=== PATIENT | female | born 1955 | race Asian ===

== ENCOUNTER 2018-07-14 18:52 | Emergency (ER) | payer SELFPAY ==
--- NOTE | 2018-07-14 19:08 | UC ---
UC General HPI - HPI Summary HPI Summary: 63-year-old woman is brought in to urgent care by her family stating that she has a new onset left facial droop and left arm weakness. I saw the patient in the waiting room and due to the stroke symptoms I let them know I will call an ambulance. The patient's family refused an ambulance and brought her out to her their car to drive her to the emergency department. I was unable to obtain any other history or physical examination. - History of Current Complaint Stated Complaint: DIZZY Time Seen by Provider: 07/14/18 19:00 PMH/Surg Hx/FS Hx/Imm Hx - Additional Past Medical History Additional PMH: LEVEL 5 CAVET Previously Healthy: Yes - UNKNOWN - Family History Known Family History: Positive: Other - UNKNOWN Review of Systems All Other Systems Reviewed And Are Negative: No Neurological: Positive: Weakness Is Patient Immunocompromised?: No - LEVEL 5 CAVET FOR THE REMAINDER OF ROS Physical Exam Triage Information Reviewed: No Completion Of Physical Exam Limited Due To: Other - PATIENT DOES NOT SPEAK TURKISH AND THE FAMILY LEFT WITH HER BEFORE I COULD PERFORM AND COMPLETE HISTORY AND PE Appearance: Other: - LEFT FACIAL DROP AND LEFT ARM WEAKNESS Vital Signs Reviewed: No Respiratory: Positive: No respiratory distress Neurological: Positive: Other: - LEFT FACIAL DROOP AND ARM WEAKNESS Course/Dx - Course Course Of Treatment: Workforce Consultant alerted immediately there was a patient in the waiting room with strokelike symptoms. The patient does not speak Guatemalan. Her family was interpreting for her. I went into the living room to see a woman sitting in the chair not speaking with left facial droop and left arm weakness. I do not see any respiratory distress. I told the family I am going to call an ambulance to get the patient to the emergency department. The family refused and took the patient into their POV to go to the emergency department. I called the charge nurse in the emergency Department to let them know of the patient coming. Nursing was unable to see the patient prior to her family leaving with her. - Diagnoses Provider Diagnosis: CVA (cerebral vascular accident) Discharge - Sign-Out/Discharge Documenting (check all that apply): Patient Departure All imaging exams completed and their final reports reviewed: No Studies - Discharge Plan Condition: Critical Disposition: AGAINST MEDICAL ADVICE Referrals: No Primary Care Phys,NOPCP [Primary Care Provider] - - Billing Disposition and Condition Condition: CRITICAL Disposition: Against Medical Advice
== END 2018-07-14 19:00 | disposition left against medical advice (07) ==
LOC: EDSEX 18:52 → UCEAST 18:52
DX: I63.9 Cerebral infarction, unspecified (principal)

== ENCOUNTER 2018-07-14 19:23 | Inpatient (IN) | payer SELFPAY ==
[2018-07-14] MEDS ORDERED: NS 0.9% 1000 ML** 1,000 ML IV ONE (19:33)
--- NOTE | 2018-07-14 19:40 | ED ---
Neurological HPI - HPI Summary HPI Summary: Pt is a 63 y/o F presenting to the ED for stroke symptoms. Per the pts daughter, the pts last known well is today at 1700. She reported the pt had a headache, weakness, and L-sided droop onset around 1730. She denies PMHx of diabetes or HTN. FLETCHER DUTTON CALLED: 19:31. - History of Current Complaint Chief Complaint: EDNeurologicalDeficit Stated Complaint: STROKE LIKE SYMPTOMS Time Seen by Provider: 07/14/18 19:30 Last Known Well Date: 07/14/2018, 17:00 Hx Obtained From: Patient, Family/Solar Project Manager - daughter Hx From Patient Unobtainable Due To: Other - fletcher dutton, pt unable to speak kinyarwanda Onset/Duration: Sudden Onset, Started hours ago, Still Present Timing: Constant Onset Severity: Moderate Current Severity: Moderate Neurological Deficit Location: Facial Pain Intensity: 0 Pain Scale Used: 0-10 Numeric Character: Lightheaded, Weak, Other: - L-sided facial droop Aggravating: Unknown Alleviating: Unknown Associated Signs and Symptoms: Positive: Unsteady Gait, Headache, Weakness, Lightheadness TPA Considered: Yes - began at 20:18 - Allergy/Home Medications Allergies/Adverse Reactions: Allergies Allergy/AdvReac Type Severity Reaction Status Date / Time No Known Allergies Allergy Verified 07/14/18 21:05 Home Medications: Home Medications NK [No Home Medications Reported] 07/14/18 [History Confirmed 07/14/18] PMH/Surg Hx/FS Hx/Imm Hx Previously Healthy: Yes Endocrine/Hematology History: Denies: Hx Blood Disorders, Hx Diabetes Cardiovascular History: Denies: Hx Hypertension, Hx Myocardial Infarction Neurological History: Denies: Hx CVA, Hx Seizures, Hx Transient Ischemic Attacks (TIA) Infectious Disease History: Unable to Obtain/Confirm Infectious Disease History: Denies: Traveled Outside the [place] in Last 30 Days - Family History Known Family History: Positive: Other - UNKNOWN Negative: Diabetes - Social History Hx Tobacco Use: No Smoking Status (MU): Never Smoked Tobacco Review of Systems Negative: Fever Neurological: Other - L-sided droop Positive: Headache, Weakness. Negative: Slurred Speech All Other Systems Reviewed And Are Negative: Yes Physical Exam - Summary Physical Exam Summary: Appearance: Well appearing, no pain distress Skin: warm, dry, reflects adequate perfusion Head/face: normal Eyes: EOMI, RACHEL ENT: normal Neck: supple, non-tender Respiratory: CTA, breath sounds present Cardiovascular: RRR, pulses symmetrical Abdomen: non-tender, soft Musculoskeletal: pulse b/l Neuro: A&Ox3 GCS: 15 NIH: 5 Triage Information Reviewed: Yes Vital Signs On Initial Exam: Initial Vitals Temp Pulse Resp BP Pulse Ox 0 F 0 0 0/0 0 07/14/18 19:30 07/14/18 19:30 07/14/18 19:30 07/14/18 19:30 07/14/18 19:30 Vital Signs Reviewed: Yes Diagnostics - Vital Signs Vital Signs Temp Pulse Resp BP Pulse Ox 07/14/18 19:30 0 F 0 0 0/0 0 - Laboratory Result Diagrams: 07/14/18 19:45 07/14/18 19:44 Lab Statement: Any lab studies that have been ordered have been reviewed, and results considered in the medical decision making process. - Radiology Chest x-ray Radiology Interpretation Completed By: ED Physician Summary of Radiographic Findings: No acute process. Pending official radiology report. - CT Brain CT CT Interpretation Completed By: Radiologist Summary of CT Findings: No acute intracranial abnormality. ED physician has reviewed this report. - EKG 2007 Cardiac Rate: NL - 65bpm EKG Rhythm: Sinus Rhythm ST Segment: Normal Ectopy: None Summary of EKG Findings: T-wave changes NIH Scale - NIH Scale Level of Consciousness: Alert/Keenly Responsive Ask Patient the Month and His/Her Age: Both Correct Ask Pt to Open/Close Eyes and Ivory Polisher/Release Non-Paretic Hand: Both Correctly Best Gaze (Only Horizontal Eye Movement): Normal Visual Field Testing: No Visual Loss Facial Paresis-Pt to Smile & Close Eyes or Grimace Symmetry: Partial Paralysis Motor Function - Right Arm: No Drift-Holds 10 Seconds Motor Function - Left Arm: Drifts LT 10 seconds Motor Function - Right Leg: No Drift-Holds 10 Seconds Motor Function - Left Leg: Drifts LT 10 seconds Limb Ataxia-Must be out of Proportion to Weakness Present: Present in One Limb Sensory (Use Pinprick to Test Arms/Legs/Trunk/Face): Normal Best Language (Describe Picture, Name Items): No Aphasia Dysarthria (Read Several Words): Normal Extinction and Inattention: No Abnormality Total Score: 5 Course/Dx - Course Course Of Treatment: Pt is a 63 y/o F presenting to the ED for stroke symptoms. Per the pts daughter, the pts last known well is today at 1700. She reported the pt had a headache, weakness, and L-sided droop onset around 1730. FLETCHER DUTTON CALLED: 19:31. [facility] called for telestroke consult at 1932, consult occurred at 1954. The physician recommended tpa, which was given at 2017. Per nursing notes, the pt has gone from a 5 to a 1 on the NIH stroke scale. - Differential Dx Differential Diagnoses Neuro: Positive: Cerebrovascular Accident, Headache, Intracranial Bleed, Transient Ischemic Attack - Diagnoses Provider Diagnoses: CVA (cerebral vascular accident) During the Visit The Following Alert/Code Occurred: Fletcher Dutton - called at 19:31 - Critical Care Time Critical Care Time: 30-74 min - 60 minutes Discharge - Sign-Out/Discharge Documenting (check all that apply): Patient Departure - Discharge Plan Condition: Stable Disposition: ADMITTED TO [facility] Referrals: No Primary Care Phys,NOPCP [Primary Care Provider] - [facility] [place] - Billing Disposition and Condition Condition: STABLE Disposition: Admitted to [facility] - Attestation Statements Document Initiated by Scribe: Yes Documenting Scribe: Joanna Hernandez Provider For Whom Scribe is Documenting (Include Credential): Damian Benson MD. Scribe Attestation: Joanna Penaloza, scribed for Damian Benson MD. on 07/14/18 at 2212. Scribe Documentation Reviewed: Yes Provider Attestation: The documentation as recorded by the scribeJoanna accurately reflects the service I personally performed and the decisions made by , Damian Benson MD. Status of Scribe Document: Viewed Consult Consult: 1932 - Called [facility] for Telestroke consult, spoke on the phone with them at 1955. [facility] physician recommended giving tpa dose. 2029 - Spoke with Dr. Myao about the pt's present condition who will be the accepting physician [place] [facility] [place] dx of [place].
[2018-07-14 19:54] LABS: ABS Basophils 0 10^3/ul (0-0.2); ABS Eosinophils 0.1 10^3/ul (0-0.6); ABS Lymphocytes 1.3 10^3/ul (1.0-4.8); ABS Monocytes 0.4 10^3/ul (0-0.8); ABS Neutrophils 3.7 10^3/ul (1.5-7.7); ABS Nucleated RBC 0 10^3/ul; Eosinophil % 2.1 %; Hematocrit 41 % (35-47); Hemoglobin 14.1 g/dl (12.0-16.0); Lymphocyte % 23.2 %; Mean Corpuscular HGB Conc 34 g/dl (31-36); Mean Corpuscular Hemoglobin 32 pg (27-31); Mean Corpuscular Volume 94 fL (80-97); Mean Platelet Volume 8.1 fL (7.4-10.4); Nucleated Red Blood Cells % 0; Platelet Count 270 10^3/ul (150-450); Red Blood Count 4.39 10^6/ul (4.00-5.40); Red Cell Distribution Width 13 % (10.5-15); White Blood Count 5.5 10^3/ul (3.5-10.8)
[2018-07-14 20:03] LABS: Activated Partial Thrombo Time 31.7 seconds (26.0-36.3); INR 0.94 (0.77-1.02)
[2018-07-14] MEDS ORDERED: Alteplase* 100 MG VIAL ONE (20:06)
[2018-07-14] MEDS ORDERED: Alteplase* 100 MG VIAL IV ONE ×4 (20:12→20:15)
[2018-07-14 20:16] LABS: Albumin 4.6 g/dL (3.2-5.2); Albumin/Globulin Ratio 1.4 (1-3); BUN/Creatinine Ratio 23.1 (8-20); Calcium 9.8 mg/dL (8.6-10.3); EGFR African American 111.4 (>60); EGFR Non-African American 92.1 (>60); Globulin 3.3 g/dL (2-4); HDL Cholesterol 57.3 mg/dL; Potassium 4.2 mmol/L (3.5-5.0); Total Bilirubin 0.5 mg/dL (0.2-1.0); Total Protein 7.9 g/dL (6.4-8.9)
[2018-07-14] MEDS ORDERED: cloNIDine TAB* 0.1 MG ONE (21:17)
[2018-07-14] MEDS: cloNIDine TAB* 0.1 MG PO ONE ×3 (21:19→21:53)
[2018-07-14] MEDS ORDERED: Iohexol 350* (CONTRAST) 500 ML MDV IV ONE (22:36)
[2018-07-14] MEDS ORDERED: amLODIPine TAB* 5 MG PO ONE (23:29)
[2018-07-14] MEDS ORDERED: amLODIPine TAB* 5 MG ONE (23:32)
--- NOTE | 2018-07-15 04:43 | HP ---
HISTORY AND PHYSICAL: DATE OF ADMISSION: 07/14/18 TIME OF ADMISSION: 11:30 p.m. PRIMARY CARE PHYSICIAN: She does not have one; she is visiting from [place]. CHIEF COMPLAINT: Facial droop. HISTORY OF PRESENT ILLNESS: This is a 63-year-old woman with no past medical history who is here visiting her daughter from [place] and was brought to the emergency department for acute CVA symptoms. Her daughter, Crow Penn, interprets for my interview. [place] Flap Inserter was offered, but Ms. Cleveland preferred her daughter. Ms. Cleveland's symptoms first began with a headache between 4 and 5 p.m. Her daughter was not home at that time. She was also having some dizziness, so she laid down, then her grandson noted that she could not speak and had left- sided weakness at approximately 5:30. At 6 p.m., her daughter arrived home from work and they went to urgent care and from urgent care, she was sent to the emergency department. In the emergency department, a code zhu was called and her NIH score was 5. [place] telestroke was utilized and they recommended TPA. TPA was administered at 2018 hours and since that time in discussion with her nurse, she reports that her symptoms have almost resolved. Ms. Cleveland and her daughter agree that she has improved nearly to her baseline. Ms. Cleveland has no complaints at this time. She has no headache, change in vision, lightheadedness , chest pain, shortness of breath, numbness, tingling, weakness, or confusion. PAST MEDICAL HISTORY: None. SOCIAL HISTORY: She is currently visiting [place] and lives in [place]. She has never been a smoker. Her healthcare proxy is her daughter, Crow. REVIEW OF SYSTEMS: As per the HPI. Remainder of the 14-point review of systems is negative. PHYSICAL EXAMINATION GENERAL: Ms. Cleveland is sleepy but alerts to voice. VITAL SIGNS: Temperature 98.4, heart rate 68, respiratory rate 15, pulse ox 100 % on room air, blood pressure 113/87. HEENT: Her pupils are 2 mm bilaterally and react to light. She has no nystagmus. Her oral mucosa is moist. NECK: I hear no carotid bruits. She has no JVP or cervical adenopathy. LUNGS: Clear bilaterally. CHEST: She is in a regular rate and rhythm with no murmurs. ABDOMEN: Soft, nontender, and nondistended. No guarding or rebound. No CVA tenderness. EXTREMITIES: No rashes, edema, or ulcers. NEUROLOGIC: She has no nystagmus. Her face is almost symmetric with a very, very slight left facial droop. Her nasolabial fold is preserved bilaterally. She is able to raise her eyebrows equally. Cranial nerves II through XII are intact. Her strength is 5/5 in both upper extremities and both lower extremities. She has no pronator drift. Her object naming is correct. Her coordination is intact. Her proprioception is intact. LABORATORY DATA: White blood cells 5.5, hemoglobin 14.1, platelets 270. INR 0.94. Sodium 140, potassium 4.2, chloride 105, bicarb 27, BUN 15, creatinine 0.65, glucose 111, lactate acid 1.0. Troponin 0.00, 0.00. Cholesterol 177, triglycerides 66, LDL 107. Brain CT: No acute intracranial abnormality. Head CTA shows moderate stenosis of bilateral internal carotid arteries and cavernous portion with calcified plaque, foci of air in bilateral cavernous sinuses. Clinical correlation with recent vascular intervention and no acute abnormality. CT of the neck shows no acute findings. ASSESSMENT AND PLAN: This is a 63-year-old female with no past medical history , who presents to the emergency department with a facial droop and left-sided weakness, was found to have NIH stroke scale of 5 and received TPA at 2018 hours. 1. Acute cerebrovascular accident versus transient ischemic attack. Her symptoms are almost completely resolved after TPA. She is being admitted to the ICU post TPA. Precautions and order sets have been completed. She is ordered for q.15 neuro checks, bed rest, and bleeding precautions. I have educated her that should she experience any new symptoms at all, she is to alert us immediately. I will consult Neurology in the morning and order an MRI for the morning. I have also ordered a TTE for the morning. I am ordering a statin. She will likely need an antiplatelet or two after tpa wears off but I will defer to Neurology and await the MRI in the morning. An A1c is pending for secondary risk management. 2. Hypertension. This would be a new problem for her if it is true; however, I suspect it was the stress of the situation. We will aim for normotension but allow permissive hypertension should it trends that way given her possible acute cerebrovascular accident. No antihypertensives for now. 3. DVT prophylaxis, contraindicated in the setting of recent TPA. 4. Diet. NPO pending a swallow evaluation. 5. Disposition. Admit to the ICU with the Neurology consult. [id number]/[facility] #: [id number] [place]
[2018-07-15] MEDS ORDERED: NS 0.9% 1000 ML** 2,000 ML IV ONE (04:44)
--- NOTE | 2018-07-15 04:48 | PN ---
Hospitalist Progress Note Date of Service: 07/15/18 I was called to the ICU for a return of Ms. Cleveland's stroke symptoms. Upon my arrival, her MAP was 52 and she had a left sided facial droop, left upper and lower extremity weakness and sleepiness but aroused to voice. 2 bags of NS were immediately hung wide open and we transported her to CT scan. When we got back in the elevator to come back upstairs, her MAP was 70s and her symptoms were improving. Images were pushed to [facility] [place] and I spoke with the neurologist. Vrad called and reported a new hypodense lesion in the right MCA territory. [facility] [place] neurologist recommended no change in management at this time.
[2018-07-15] MEDS ORDERED: NS 0.9% 1000 ML** 1,000 ML IV SCH ×2 (05:30→10:34)
[2018-07-15 05:35] LABS: ABS Basophils 0 10^3/ul (0-0.2); ABS Eosinophils 0.1 10^3/ul (0-0.6); ABS Lymphocytes 1.2 10^3/ul (1.0-4.8); ABS Monocytes 0.4 10^3/ul (0-0.8); ABS Neutrophils 2.2 10^3/ul (1.5-7.7); ABS Nucleated RBC 0 10^3/ul; Eosinophil % 1.9 %; Hematocrit 39 % (35-47); Lymphocyte % 30.9 %; Mean Corpuscular HGB Conc 34 g/dl (31-36); Mean Corpuscular Hemoglobin 32 pg (27-31); Mean Corpuscular Volume 94 fL (80-97); Nucleated Red Blood Cells % 0.1; Platelet Count 223 10^3/ul (150-450); Red Cell Distribution Width 13 % (10.5-15); White Blood Count 3.9 10^3/ul (3.5-10.8)
[2018-07-15 05:45] LABS: INR 1.06 (0.77-1.02)
[2018-07-15 06:06] LABS: Albumin 3.6 g/dL (3.2-5.2); Albumin/Globulin Ratio 1.4 (1-3); BUN/Creatinine Ratio 19.6 (8-20); Calcium 7.9 mg/dL (8.6-10.3); EGFR African American 147.4 (>60); EGFR Non-African American 121.8 (>60); Globulin 2.5 g/dL (2-4); Potassium 3.4 mmol/L (3.5-5.0); Total Bilirubin 0.7 mg/dL (0.2-1.0); Total Protein 6.1 g/dL (6.4-8.9)
[2018-07-15] MEDS ORDERED: Potassium Chlor TAB* 20 MEQ TAB.ER PO ONE (07:53)
[2018-07-15] MEDS: NS 0.9% 1000 ML** 1,000 ML IV ONE ×2 (07:58→09:01)
[2018-07-15] MEDS: Pantoprazole TAB * 40 MG TAB PO SCH (08:21)
--- NOTE | 2018-07-15 10:51 | ECHO ---
Patient: BERENICE REILLY [facility] Rec#: [id number] : 1955 Date: 07/15/2018 Age: 63y Height: 152 cm / 59.8 in Weight: 52 kg / 114.6 lbs Sex: F BSA: 1.47 Room#: [facility] Admit Date#: 07/15/2018 Type: Inpatient Referring: Mary Mayo MD Reading: Ayden Ocampo MD Django Developer: Katie Cruz RDCS CC: Reynaldo Tom MD Transthoracic Echocardiogram Indication: CVA BP: 103/66 HR: 48 Rhythm: Bradycardia Findings History: No known cardiac history, s/p tPA. Technical Comments: The study quality is good. Completed at 0815. Left Ventricle: The left ventricular chamber size is normal. Mild concentric left ventricular hypertrophy is observed. Global left ventricular wall motion and contractility are within normal limits. There is normal left ventricular systolic function. The estimated ejection fraction is 55-60%. There is no consistent Doppler evidence of clinically significant diastolic dysfunction. Left Atrium: The left atrium is mildly dilated. Right Ventricle: Moderator Band present. The right ventricle is slightly dilated. The right ventricular global systolic function is normal. Right Atrium: The right atrium is mildly dilated. Interatrial septum appears intact without evidence of shunting. The bubble study is negative. A patent foramen ovale is not demonstrated with color Doppler and agitated contrast. Aortic Valve: The aortic valve is trileaflet. The aortic valve leaflets are mildly thickened. There is a trace of aortic regurgitation. There is no evidence of aortic stenosis. Mitral Valve: The mitral valve leaflets are mildly thickened. There is a trace of mitral regurgitation. There is no evidence of mitral stenosis. Tricuspid Valve: The tricuspid valve leaflets are normal. There is trace to mild tricuspid regurgitation. The right ventricular systolic pressure is estimated at 21 mmHg. No pulmonary hypertension is noted. There is no tricuspid stenosis. Pulmonic Valve: The pulmonic valve appears normal. There is a trace pulmonic regurgitation. There is no pulmonic stenosis. Pericardium: There is no significant pericardial effusion. Aorta: There is no dilatation of the ascending aorta. There is no dilatation of the aortic arch. The aortic root is normal in size. Pulmonary Artery: The main pulmonary artery appears normal. Venous: The inferior vena cava appears normal in size. There is a greater than 50% respiratory change in the inferior vena cava dimension. Contrast: Intravenous agitated saline contrast was used to assess intracardiac shunting. Images 92 and 93. Summary: There was not any prior study for comparison. Conclusions The left ventricular chamber size is normal. Mild concentric left ventricular hypertrophy is observed. The estimated ejection fraction is 55-60%. The left atrium is mildly dilated. Interatrial septum appears intact without evidence of shunting. The bubble study is negative. A patent foramen ovale is not demonstrated with color Doppler and agitated contrast. There is a trace of aortic regurgitation. There is a trace of mitral regurgitation. There is trace to mild tricuspid regurgitation. No pulmonary hypertension is noted. There is a trace pulmonic regurgitation. Measurements Name Value Normal Range RVIDd (AP) 2D 2.7 cm (0.9 - 2.6) RVDdMajor (2D) 3.6 cm (2.2 - 4.4) RAd ISD 4CH 5.4 cm (3.4 - 4.9) RA (A4C)W 3.7 cm (2.9 - 4.6) IVSd (2D) 1.1 cm (0.6 - 1) LVPWd (2D) 1.1 cm (0.6 - 1) LVIDd (2D) 4 cm (3.6 - 5.4) LVIDs (2D) 2.5 cm - LV FS (2D) 38 % (25 - 45) Aortic Annulus 1.7 cm (1.4 - 2.6) Ao root diameter (2D) 2.7 cm (2.1 - 3.5) Ascending Ao 3.4 cm (2.1 - 3.4) Aortic arch 2.4 cm (1.8 - 3.4) LA dimension (AP) 2D 3.5 cm (2.3 - 3.8) LAd ISD 4CH 5.3 cm (2.9 - 5.3) LA ISD 4CH W 4.2 cm (2.5 - 4.5) Name Value Normal Range LA ESV BP (A/L) index 36 ml/m2 - Name Value Normal Range MV E-wave Vmax 0.6 m/sec - MV deceleration time 268 msec - MV A-wave Vmax 0.5 m/sec - MV E:A ratio 1.2 ratio - LV septal e' Vmax 0.05 m/sec - LV lateral e' Vmax 0.1 m/sec - LV E:e' septal ratio 12 ratio - LV E:e' lateral ratio 6 ratio - Name Value Normal Range AV Vmax 1.2 m/sec - AV VTI 28 cm - AV peak gradient 5 mmHg - AV mean gradient 3 mmHg - LVOT Vmax 1 m/sec - LVOT VTI 25 cm - LVOT peak gradient 4 mmHg - LVOT mean gradient 2 mmHg - BRAULIO Vmax 0.5 m/sec - Name Value Normal Range TR Vmax 2.1 m/sec - TR peak gradient 18 mmHg - RAP 3 mmHg - RVSP 21 mmHg - IVC diameter 1.3 cm - Name Value Normal Range PV Vmax 0.7 m/sec - PV peak gradient 2 mmHg - TN end-diastolic Vmax 0.6 m/sec - PA end-diastolic pressur1 mmHg -
[2018-07-15 10:55] LABS: C Reactive Protein 1.57 mg/L (<8.01)
--- NOTE | 2018-07-15 12:16 | PN ---
NEUROLOGICAL FOLLOWUP: DATE: 07/15/18 HISTORY OF PRESENT ILLNESS: This is a neurological followup on Nieves Cleveland after a telestroke consult done last evening. She is a 63-year-old woman who presented last night with left facial droop and left arm weakness and came with symptoms of acute stroke. This happened at about 5:30 and she was transferred from the urgent care to the emergency room, where a code zhu was called and she had a NIH stroke scale of 5. Telestroke recommended tPA, which was done at 2018 hours and following that, her symptoms almost resolved. However, overnight, she had return of her left- sided weakness, so she was with low blood pressure at about 4 a.m. A repeat CAT scan was done at that point. She also at about 8 o'clock, also in association with low blood pressure, developed left-sided weakness. Both times she had return of good strength on the left side after a fluid bolus was given both times. She is on no medicines, has no past medical history. She lives in [place] and is visiting her daughter in [place]. She is not a smoker. She has had no known surgery. Review of systems through her daughter is negative. PHYSICAL EXAMINATION: She is awake and alert and conversant in Yoruba and answers questions through her daughter appropriately. Pulse 74, respirations 20 , blood pressure 150/101, temperature 98.1. She is alert and oriented. Cranial nerves II through XII were intact, other than there may have been a minor left facial weakness with her left palpebral fissure slightly wider when compared to the right, but otherwise no clear facial weakness. Motor exam is with normal tone and strength. She had trace pronator drift on the left. Reflexes were 2 and equal. Chest: Clear. Cardiovascular: Regular rate and rhythm. Abdomen: Soft with positive bowel sounds. She had intact sensation to touch on both sides. DIAGNOSTIC STUDIES/LAB DATA: CT scan was initially negative, but then showed at 4:20 this morning a hypodensity in the right caudate and right internal capsule and lentiform nucleus. A 6 mm right ICA aneurysm was noted by the radiologist. CTA showed moderate stenosis in bilateral internal carotids in the cavernous portion. There was no acute abnormality. ASSESSMENT AND PLAN: Mrs. Cleveland had a partial right middle cerebral artery stroke with symptoms resolved following tPA and fluid status. She is getting an echo. She has been placed on a statin for LDL of 107. Her CBC, INR, and PTT were normal and her CMP was unremarkable, other than the LDL was the only abnormality on her workup. She will be getting an MRI scan this evening and then we will be placing her on most likely antiplatelet therapy since there is no history of atrial fibrillation. I will discuss with the radiologist the issue of possible aneurysm on the CT scan that was read, but not on her CTA. Thank you for sharing her case. [id number]/[facility] #: [id number] [place]
[2018-07-15] MEDS ORDERED: NS 0.9% 1000 ML** 1,000 ML IV ONE (14:58)
[2018-07-15] MEDS: Phenylephrine 10 MG/ML VIAL* 50 MG in NS 0.9% 250 ML* 245 ML IV SCH (16:20)
[2018-07-15] MEDS ORDERED: Atorvastatin* 40 MG TAB PO SCH (17:00)
[2018-07-15] MEDS: Atorvastatin* 80 MG TAB PO SCH (18:04)
[2018-07-15] MEDS ORDERED: Aspirin 81 mg CHEW TAB* 81 MG TAB.CHEW PO SCH ×2 (20:00→21:30)
--- NOTE | 2018-07-15 20:07 | PN ---
Subjective Date of Service: 07/15/18 Interval History: Pt seen and examined. Meds and labs reviewed. CC: Waxing and waning of symptoms ROS: Denied KOEHLER/dizziness, F/C, N/V, CP, SOB, increased cough, sputum production , abd pain, diarrhea, constipation, dysuria, myalgias, arthralgias, throat pain , and new skin lesions. The rest of the 14 point ROS are unremarkable. PHYSICAL EXAM: GEN APPEARANCE: Awake, not in acute distress HEENT: NC/AT, PERRLA, moist oral mucosa, (-) throat erythema NECK: Soft, supple, (-) cervical LAD, (-)JVD HEART: S1S2 WNL, RRR, No MRG CHEST: CTA, BL, GAE, No W/R/R ABD: Soft, ND/NT, NABS 4x Q EXT: No C/C/E SKIN: Warm to touch PSYCH: No active psychosis, hallucinations, depression, SI/HI Objective Active Medications: Atorvastatin Calcium (Lipitor*) 80 mg PO 1700 [facility] Last Admin: 07/15/18 18:04 Dose: 80 mg Sodium Chloride (Ns 0.9% 1000 Ml) 1,000 mls @ 125 mls/hr IV PER RATE KWESI Phenylephrine HCl 50 mg/ (Sodium Chloride) 250 mls @ 3 mls/hr IV Q24H [facility]; Protocol Last Admin: 07/15/18 16:20 Dose: 3 mls/hr Pantoprazole Sodium (Protonix Tab*) 40 mg PO Q24H [facility] Last Admin: 07/15/18 08:21 Dose: 40 mg Vital Signs - 8 hr 07/15/18 07/15/18 07/15/18 12:10 12:15 12:30 Temperature 99.4 F Pulse Rate 67 74 Respiratory 18 17 Rate Blood Pressure 123/74 123/81 (mmHg) O2 Sat by Pulse 97 97 Oximetry 07/15/18 07/15/18 07/15/18 12:45 13:00 13:15 Temperature Pulse Rate 63 62 77 Respiratory 20 18 15 Rate Blood Pressure 109/68 108/66 130/85 (mmHg) O2 Sat by Pulse 96 97 99 Oximetry 07/15/18 07/15/18 07/15/18 13:30 13:45 14:00 Temperature Pulse Rate 64 60 59 Respiratory 17 18 18 Rate Blood Pressure 111/67 107/66 111/67 (mmHg) O2 Sat by Pulse 96 96 96 Oximetry 07/15/18 07/15/18 07/15/18 14:02 14:15 14:30 Temperature Pulse Rate 59 58 65 Respiratory 17 18 16 Rate Blood Pressure 102/65 111/71 (mmHg) O2 Sat by Pulse 95 95 96 Oximetry 07/15/18 07/15/18 07/15/18 14:45 15:00 15:01 Temperature Pulse Rate 58 60 57 Respiratory 19 22 19 Rate Blood Pressure 112/69 111/68 (mmHg) O2 Sat by Pulse 95 95 95 Oximetry 07/15/18 07/15/18 07/15/18 15:15 15:30 15:45 Temperature Pulse Rate 57 80 69 Respiratory 19 18 18 Rate Blood Pressure 115/69 138/86 124/75 (mmHg) O2 Sat by Pulse 96 97 96 Oximetry 07/15/18 07/15/18 07/15/18 16:00 16:01 16:15 Temperature 100.0 F Pulse Rate 79 85 71 Respiratory 20 15 21 Rate Blood Pressure 139/85 131/80 (mmHg) O2 Sat by Pulse 98 99 96 Oximetry 07/15/18 07/15/18 07/15/18 16:30 16:45 17:00 Temperature Pulse Rate 64 70 73 Respiratory 19 14 21 Rate Blood Pressure 126/77 128/81 149/92 (mmHg) O2 Sat by Pulse 96 96 97 Oximetry 07/15/18 07/15/18 07/15/18 17:01 17:57 18:00 Temperature Pulse Rate 71 74 89 Respiratory 15 19 13 Rate Blood Pressure 128/97 159/105 (mmHg) O2 Sat by Pulse 97 97 100 Oximetry 07/15/18 07/15/18 07/15/18 18:01 18:15 18:21 Temperature Pulse Rate 79 78 75 Respiratory 20 22 21 Rate Blood Pressure 172/97 152/96 (mmHg) O2 Sat by Pulse 98 99 98 Oximetry 07/15/18 07/15/18 18:32 18:45 Temperature Pulse Rate 80 72 Respiratory 21 19 Rate Blood Pressure 158/98 153/91 (mmHg) O2 Sat by Pulse 98 98 Oximetry Oxygen Devices in Use Now: None Result Diagrams: 07/15/18 05:20 07/15/18 05:20 Microbiology and Other Data: Microbiology 07/15/18 01:05 Nasal Screen MRSA (PCR) - Final Nasal Mrsa Not Detected Assess/Plan/Problems-Billing Assessment: - Patient Problems (1) CVA (cerebral vascular accident) Current Visit: Yes Status: Acute Code(s): I63.9 - CEREBRAL INFARCTION, UNSPECIFIED SNOMED Code(s): 060752427 Comment: -R. MCA infarct -Maintain BP between 110/60-140/90 -D/W Tomasa Rosenberg, and [place] -Dueto my discussion w/Dr. Mays and Tomasa, reassessed pt and found pt more awake and interactive w/no complaints; D/Cd neosynephrine gtt and D/C ASA to be started tonight -Will continue watchful waiting -Continue statins (2) DVT prophylaxis Current Visit: Yes Status: Acute Code(s): XVY4325 - SNOMED Code(s): 431156761 Comment: -Contraindicated given above -Place pt on SCDs Status and Disposition: -For PT/OT eval -Passed speech eval; placed on heart healthy diet
[2018-07-15 20:38] LABS: Urine Appearance Clear; Urine Bacteria Absent (Absent); Urine Bilirubin Negative (Negative); Urine Blood 1+ (Negative); Urine Color Colorless; Urine Glucose Negative (Negative); Urine Ketones Trace (Negative); Urine Nitrite Negative (Negative); Urine Protein Negative (Negative); Urine Red Blood Cell Trace(0-2/hpf) (Absent); Urine Specific Gravity 1.003 (1.010-1.030); Urine Urobilinogen Negative (Negative); Urine White Blood Cell Absent (Absent)
[2018-07-16 05:35] LABS: Hematocrit 40 % (35-47); Hemoglobin 13.5 g/dl (12.0-16.0); Mean Corpuscular HGB Conc 34 g/dl (31-36); Mean Corpuscular Hemoglobin 32 pg (27-31); Mean Corpuscular Volume 93 fL (80-97); Mean Platelet Volume 7.6 fL (7.4-10.4); Platelet Count 246 10^3/ul (150-450); Red Blood Count 4.24 10^6/ul (4.00-5.40); Red Cell Distribution Width 13 % (10.5-15); White Blood Count 5.4 10^3/ul (3.5-10.8)
[2018-07-16 05:51] LABS: Albumin 3.9 g/dL (3.2-5.2); Albumin/Globulin Ratio 1.4 (1-3); BUN/Creatinine Ratio 12.2 (8-20); Calcium 8.7 mg/dL (8.6-10.3); EGFR African American 154.3 (>60); EGFR Non-African American 127.6 (>60); Globulin 2.8 g/dL (2-4); Phosphorus 2.8 mg/dL (2.5-5.0); Potassium 3.2 mmol/L (3.5-5.0); Total Bilirubin 1.1 mg/dL (0.2-1.0); Total Protein 6.7 g/dL (6.4-8.9)
[2018-07-16] MEDS ORDERED: Potassium Chlor TAB* 20 MEQ TAB.ER PO STA (08:14)
[2018-07-16] MEDS: Pantoprazole TAB * 40 MG TAB PO SCH (08:15)
[2018-07-16] MEDS ORDERED: Iohexol 300* (CONTRAST) 10 ML SDV IV ONE (12:14)
--- NOTE | 2018-07-16 13:39 | CONS ---
NEUROLOGY FOLLOWUP CONSULTATION: DATE OF FOLLOWUP: 07/16/18 LOCATION: She is in ICU bed 11. HOSPITALIST: Dr. Singh. CHIEF COMPLAINT: Episode of difficulty speaking and left-sided weakness. INTERVAL HISTORY: Since yesterday, Ms Cleveland feels fine. She has had some fluctuations in her blood pressure and when it is low, she gets sort of sleepy, according to her daughter. She denies a headache today. She denies any weakness or numbness or problems with vision. In going over the history with her daughter, her mother is visiting from [place]. She does not get any medical care in [place] and has not seen a physician in years. Therefore, it is unknown if she has hypertension or any other medical issues. However, the patient denies any weight loss or intestinal problems. She had not been having problems with headaches prior to the day of admission. She has not had any difficulty walking or incoordination. The patient is right-handed. The daughter notes that in the last couple of days she seemed somewhat childish in her demeanor. She does not seem to have the same attention and focus she expects of her. MEDICATIONS: Reviewed and she is currently on: 1. Atorvastatin 80 mg a day. 2. Protonix. PHYSICAL EXAM: On exam, she is awake and alert, but at times gets a little bit sleepy looking. Most recent blood pressure 128/81, heart rate running in the 60s and 70s and sinus on the monitor. Last temperature was 98.3 by temporal scan. Heart tones are normal. There are no murmurs. Neck is supple. There are no cervical bruits. Oral mucosa is moist and atraumatic. Neurologic Exam: Pupils are equal at about 3 mm, reacting consensually to 2 mm. Eye movements are full. Visual tong are full to confrontation. Funduscopic exam reveals sharp disc bilaterally. Facial musculature reveals minimal flattening of the left nasolabial fold. Eye closure strength is normal bilaterally. Facial sensation to light touch with cotton is reported as symmetric. Sensation in the extremities to cotton is reported as symmetric as well. She has mild hammertoe deformities and high arches. Motor exam reveals increased muscle tone in the legs, although it is hard to tell if she just does not understand enough to relax or there is actually pathological increased tone. She has normal tone in the arms. She has normal strength in the arms. She has normal strength in the legs proximally and distally. There is no drift. Finger taps are normal in the hands. She speaks only Hungarian, but her daughter says she seems to be comprehending fine. DIAGNOSTIC STUDIES/LAB DATA: Laboratory data is reviewed and she has a normal CBC this morning, INR was borderline elevated when she came in at 1.06, PTT was normal. Chemistries have been notable for a low potassium, which has been supplemented. Hemoglobin A1c was 5.9% when she came in. Other than total bilirubin of borderline at 1.1, the rest of her chemistry profile is normal. Cholesterol on admission was 177, LDL 107. TSH normal today at 4.6. Urinalysis is unremarkable. Other laboratory data is notable for imaging, which is interesting and somewhat conflicting. She had a CT angiogram of the brain on the day of admission interpreted as normal. In retrospect, there is a right internal carotid artery aneurysm. Her initial brain CT is reported as normal but there is some loss of zhu/white matter demarcation for the right caudate and basal ganglia. The MRI of the brain yesterday was notable for the aneurysm being picked up and described. There is description of hemorrhagic transformation as well as restricted diffusion in the right basal ganglia and caudate. It is a very odd looking picture where the center of the basal ganglia lesion looks to have less restricted diffusion than the rim. There is mass effect upon the frontal horn of the right lateral ventricle. There are areas of spin-weighted abnormality suggestive of petechial hemorrhage. Her CT scan of the brain today, however, does not reveal hemorrhage. It does reveal increased mass effect, but otherwise is unremarkable. IMPRESSION AND PLAN: I am concerned that Ms. Cleveland has something other than a cerebral infarction, specifically possibly a mass. Looking at her initial brain CT scan, there is loss of zhu-white matter differentiation in the basal ganglia on the right, so there were changes really before her initial treatment. She does have internal carotid aneurysm, which appears to be asymptomatic. I would like to get a CT scan with contrast today. Ideally, she should get an MRI with contrast as well, but given that it is the weekend, I think that can wait until Wednesday at least. I will send blood work for sed rate and a CRP as well. She probably could go to the regular medical floor at this point. I have discussed with her daughter the incongruity between the imaging studies and my concern that there is something else going on besides a cerebrovascular event, specifically a possible mass. I will continue to follow her. [id number]/[facility] #: [id number] STEPHON
[2018-07-16 14:39] LABS: C Reactive Protein 2.67 mg/L (<8.01)
[2018-07-16 15:00] LABS: Carcinoembryonic Antigen 0.5 ng/mL (0.1-5.0)
--- NOTE | 2018-07-16 17:15 | PN ---
Progress Note - Progress Note Date of Service: 07/16/18 SOAP: Subjective: []Called about patient on 07/[address] Singh and Dr. Randolph after an MRI was intrepreted as showing probable hemmorhagic transformation of a right brain stroke. She was admitted and had TPA per Tele Neurology Consult.She experienced no change in her status but concern for possible hemmorhage was raised following her MRI. She had a subsequent F/U CT this AM which may show slight petechial hemmorhage in her infarct but no significant hematoma. She denies any headache and has had no nausea or vomiting.She is able to follow requests without difficulty. Objective: []Pleasant [place] lady seen with help of her family members Mild left sided weakness Assessment: [] She has a Right Brain Stroke as her initial CT was normal and subsequent CT shows infarct. She also has a small incidentally found aneurysm Plan: [] She should have her asymptomatic aneurysm evaluated after she recovers from her stroke. There is no indication for surgical therapy at this time.
[2018-07-16] MEDS: Phenylephrine 10 MG/ML VIAL* 50 MG in NS 0.9% 250 ML* 245 ML IV SCH (17:42)
[2018-07-16] MEDS: Atorvastatin* 80 MG TAB PO SCH (17:45)
--- NOTE | 2018-07-16 18:45 | PN ---
Subjective Date of Service: 07/16/18 Interval History: Pt seen and examined. Meds and labs reviewed. D/W Dr. Randolph this AM. Please see discussion below. CC: N/A ROS: Denied KOEHLER/dizziness, F/C, N/V, CP, SOB, increased cough, sputum production , abd pain, diarrhea, constipation, dysuria, myalgias, arthralgias, throat pain , and new skin lesions. The rest of the 14 point ROS are unremarkable. PHYSICAL EXAM: GEN APPEARANCE: Awake, not in acute distress HEENT: NC/AT, PERRLA, moist oral mucosa, (-) throat erythema NECK: Soft, supple, (-) cervical LAD, (-)JVD HEART: S1S2 WNL, RRR, No MRG CHEST: CTA, BL, GAE, No W/R/R ABD: Soft, ND/NT, NABS 4x Q EXT: No C/C/E SKIN: Warm to touch PSYCH: No active psychosis, hallucinations, depression, SI/HI Objective Active Medications: Atorvastatin Calcium (Lipitor*) 80 mg PO 1700 [facility] Last Admin: 07/16/18 17:45 Dose: 80 mg Phenylephrine HCl 50 mg/ (Sodium Chloride) 250 mls @ 3 mls/hr IV Q24H [facility]; Protocol Last Admin: 07/16/18 17:42 Dose: 3 mls/hr Pantoprazole Sodium (Protonix Tab*) 40 mg PO Q24H [facility] Last Admin: 07/16/18 08:15 Dose: 40 mg Vital Signs - 8 hr 07/16/18 07/16/18 07/16/18 10:45 11:00 11:15 Temperature Pulse Rate 69 66 72 Respiratory 22 21 21 Rate Blood Pressure 118/75 115/74 119/75 (mmHg) O2 Sat by Pulse 96 96 96 Oximetry 07/16/18 07/16/18 07/16/18 11:30 11:45 11:50 Temperature Pulse Rate 76 83 Respiratory 22 25 25 Rate Blood Pressure 114/74 140/86 (mmHg) O2 Sat by Pulse 95 95 Oximetry 07/16/18 07/16/18 07/16/18 12:00 12:15 12:30 Temperature 98.2 F Pulse Rate 77 75 71 Respiratory 21 23 23 Rate Blood Pressure 116/74 123/75 125/77 (mmHg) O2 Sat by Pulse 95 96 95 Oximetry 07/16/18 07/16/18 07/16/18 12:58 13:00 13:15 Temperature Pulse Rate 69 71 78 Respiratory 21 19 21 Rate Blood Pressure 134/76 121/86 147/84 (mmHg) O2 Sat by Pulse 96 97 97 Oximetry 07/16/18 07/16/18 07/16/18 13:30 13:45 14:00 Temperature Pulse Rate 79 77 76 Respiratory 21 19 26 Rate Blood Pressure 129/82 133/83 135/84 (mmHg) O2 Sat by Pulse 96 97 97 Oximetry 07/16/18 07/16/18 14:01 16:00 Temperature 99.9 F Pulse Rate 74 Respiratory 29 Rate Blood Pressure (mmHg) O2 Sat by Pulse 97 Oximetry Oxygen Devices in Use Now: None Result Diagrams: 07/16/18 05:25 07/16/18 05:25 Microbiology and Other Data: Microbiology 07/15/18 01:05 Nasal Screen MRSA (PCR) - Final Nasal Mrsa Not Detected Assess/Plan/Problems-Billing Assessment: - Patient Problems (1) CVA (cerebral vascular accident) Current Visit: Yes Status: Acute Code(s): I63.9 - CEREBRAL INFARCTION, UNSPECIFIED SNOMED Code(s): 171738744 Comment: -Reviewed MRI and repeat CT w/Dr. Randolph and given unusual appearance, possibility of mass should be entertained -Appreciate Dr. aWllace and would have aneurysm evaluated and followed as outpatient, although pt will likely go back to [place] -R. MCA infarct vs mass -Maintain BP between 110/60-140/90 -Will continue watchful waiting -Continue statins now (2) DVT prophylaxis Current Visit: Yes Status: Acute Code(s): [id number] - SNOMED Code(s): 165315159 Comment: -Continue SCDs Status and Disposition: -For PT/OT eval -Transfer to [facility]
[2018-07-16] MEDS ORDERED: Acetaminophen TAB* 325 MG PO PRN (19:16)
[2018-07-16] MEDS ORDERED: Ondansetron INJ* 2 MG/ML VIAL IV PRN (19:16)
[2018-07-16] MEDS ORDERED: Ketorolac INJ* 30 MG/ML 1 ML VIAL IV PUSH PRN (22:51)
[2018-07-17 06:28] LABS: ABS Basophils 0 10^3/ul (0-0.2); ABS Eosinophils 0.1 10^3/ul (0-0.6); ABS Lymphocytes 1.4 10^3/ul (1.0-4.8); ABS Monocytes 0.4 10^3/ul (0-0.8); ABS Neutrophils 3.7 10^3/ul (1.5-7.7); ABS Nucleated RBC 0 10^3/ul; Eosinophil % 1.4 %; Hematocrit 38 % (35-47); Hemoglobin 12.9 g/dl (12.0-16.0); Lymphocyte % 24.1 %; Mean Corpuscular HGB Conc 34 g/dl (31-36); Mean Corpuscular Hemoglobin 32 pg (27-31); Mean Corpuscular Volume 93 fL (80-97); Mean Platelet Volume 7.8 fL (7.4-10.4); Nucleated Red Blood Cells % 0; Platelet Count 241 10^3/ul (150-450); Red Blood Count 4.03 10^6/ul (4.00-5.40); Red Cell Distribution Width 13 % (10.5-15); White Blood Count 5.6 10^3/ul (3.5-10.8)
[2018-07-17 06:43] LABS: BUN/Creatinine Ratio 25.4 (8-20); Calcium 9.4 mg/dL (8.6-10.3); EGFR African American 107.6 (>60); EGFR Non-African American 88.9 (>60); Potassium 3.7 mmol/L (3.5-5.0)
[2018-07-17] MEDS: Pantoprazole TAB * 40 MG TAB PO SCH (08:30)
[2018-07-17 17:23] VITALS: BP 118/68
[2018-07-17] MEDS: Atorvastatin* 80 MG TAB PO SCH (17:51)
--- NOTE | 2018-07-17 21:03 | CONS ---
NEUROLOGY CONSULT FOLLOWUP: DATE OF FOLLOWUP: 07/17/18 HOSPITALIST: Dr. Singh. LOCATION: She is in room 449. CHIEF COMPLAINT: Right hemisphere stroke. INTERVAL HISTORY: Since yesterday, Ms. Cleveland feels "better" according to her daughter who interprets. She denies headache. She feels steady on her feet. Her daughter notes that she does have some delay in cognition, but she appears to have fluent language in her [place] language. Her daughter does note that she is a little more hesitant coming up with words as described to her nurse, Eileen Concepcion. MEDICATIONS: Medications are reviewed and she is still on atorvastatin 80 mg p.o. q. day. She has some p.r.n. medications, but no other scheduled medications. She has not been started on antiplatelet therapy yet. PHYSICAL EXAM: Her blood pressure most recently is 114/68, heart rate is running in the 50s to 60 and respiratory rate is 20. Oxygen saturation is 96% on room air. She has symmetrical facial movement. She has good strength in the limbs. Her gait is a little bit unsteady to my assessment but independent. 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 She looks a little bit tired. DIAGNOSTIC STUDIES/LAB DATA: Reviewed from today notable for normal CBC, normal chemistry profile other than glucose 120. Her hemoglobin A1c is elevated at 5.9% as of 07/15/18. Cholesterol is 177 and LDL 107. I also reviewed Dr. Kush Wallace's neurosurgical consultation. He felt that she had an involving right hemisphere infarction, maybe some petechial hemorrhage within the infarction, but no other significant brain hemorrhage. He also noted an asymptomatic aneurysm that should be evaluated as an outpatient. IMPRESSION: Subcortical right hemispheric stroke. To me, there are some unusual features to the MR suggesting possible couple of stages to it, but in any case it appears to be an ischemic stroke. There is no evidence of cardio- embolic disease or large vessel intracranial disease. She is not hypertensive. She is currently on atorvastatin and I agree with that in general, but she apparently does not have an access to healthcare in [place] and so I doubt that will be continued. I do recommend starting aspirin therapy at this point in time as there is only some petechial hemorrhage on her imaging and nothing more significant. I have discussed my impression and recommendations with Dr. Singh. I would like to see the patient in followup in my office in 2 to 4 weeks. I explained this to the daughter as well and she is in agreement with the plan. I also suggested to Dr. Singh referral to [facility], so that for as long as she is in the [place] that she has access to general medical care. Her daughter indicates that the plan is for her and her , who is currently also staying with them, to be here until about November. [id number]/[facility] #: [id number] STEPHON
--- NOTE | 2018-07-17 23:00 | DS ---
CC: Dr. Mary Mayo; Dr. Damian Benson; Dr. Reynaldo Tom; Dr. Kush Wallace DISCHARGE SUMMARY: DATE OF ADMISSION: DATE OF DISCHARGE: 07/17/18 DISCHARGE CONDITION: Fair. DISPOSITION: Home. DISCHARGE DIAGNOSES: As follows: 1. Cerebrovascular accident, right middle cerebral artery distribution. 2. Right internal carotid artery aneurysm, asymptomatic. DISCHARGE MEDICATIONS: As follows: 1. Tylenol 650 mg p.o. q.6 p.r.n. 2. Atorvastatin 80 mg p.o. at bedtime. 3. Pantoprazole 40 mg p.o. daily. 4. Aspirin 81 mg p.o. daily. HISTORY OF PRESENT ILLNESS/HOSPITAL COURSE: The patient is a 63-year-old lady, [place] national, who is visiting her daughter in [place] with no documented past medical history, who was brought to the emergency room due to a facial droop which began a few hours prior to her daughter bringing her to the ED. At that time, she also complained of dizziness and her grandson noticed that she could not speak and that her left side was weak approximately 30 minutes later. Her daughter then arrived home from work and brought her to the urgent care where she was sent to our emergency room, where she was given TPA for diagnosis of CVA. Her brain CT on 07/14/18 on presentation showed no acute disease/abnormality. Upon admission, she was found initially to be weak; however, as the day progressed the following day, her symptoms improved. However, when her blood pressure reached systolic of around 100 or sometimes high 90s, she would become more lethargic and confused along with inability to move her left side due to weakness and hence, Dr. Tom and Dr. Randolph were called at that time and suggested that BP be kept between 110/60 to 140/90. Hence, she was placed in the ICU for further support given boluses alone as well as IV fluids being given were not enough to maintain her blood pressure where she is no longer symptomatic. Hence, initially, she was placed on a phenylephrine drip and was subsequently titrated to off. This was then relayed to Dr. Randolph, who then repeated the brain CT of her head on 07/15/18, at which point it showed that the right caudate head in the anterior aspect of the internal capsule and right lentiform nucleus seems to have a hypodensity which was new since the prior study that is consistent with a right MCA infarct. A brain MRI was done on 07/15/18, again confirming the right basal ganglia infarct that is likely either acute/subacute. There is a noted ganglia edema that causes mass effect upon the frontal horn of the right lateral ventricle. There are also noted to be scattered additional foci of high FLAIR signal intensity within the cerebral white matter. No aneurysms were found in the head ; however, there was an incidental right internal carotid artery aneurysm measuring 0.9 to 0.7 cm. Because of her initial waxing and waning of mental status and weakness, she had a CT scan the following day, which showed an interval progression of the region of hypodensity involving the right caudate and basal ganglia and continued compression on the anterior horn of the right lateral ventricle, again concerning for an evolving infarct. She had a repeat brain CT on that same day. Initially, there was some confusion regarding her CT findings, whether she had a hemorrhagic conversion or not and hence, the plan for DVT prophylaxis by Lovenox and/or heparin product was held and she was placed on SCD. Her aspirin was momentarily discontinued as well. Upon review of the imaging studies by Dr. Randolph, he mentioned that there are some unusual telltale signs that are suggestive and due to the lack of white and zhu matter border, he suggested there might be a possible mass given her neurological exam was then nonfocal. However, Dr. Wallace mentions that he does not think that this was a mass and rather some small punctate hemorrhagic petechial conversion with an infarct was the thought. Dr. Randolph prior to discharge mentioned that he will review the radiographs with a neuroradiologist and called me later and suggested that the consensus seems to be that the imaging studies suggest that she did have a right MCA infarct with minimal petechial hemorrhagic conversion. Given the small area of bleeding that was found on the aforementioned imaging, she will be restarted on aspirin prior to her discharge. The patient was able to ambulate well with minimal assist, if any, when she transfers from her bed to the bathroom and back. Nursing staff was also able to observe the patient as they walked her around the hallway given that physical therapy, unfortunately, is not available on the weekend. Therefore, she will be discharged home improved. The patient and her daughter were advised to follow up and re-call her PCP within 3 days post discharge. Since she does not have a PCP, she was advised to [facility] and they had been given the number to set up a followup appointment. She was advised to call Dr. Randolph in 2 to 4 weeks and to call his office to set up an appointment. She was advised that if her symptoms resume or develop new ones or feel unwell for any reason, to call her PCP first. If her PCP cannot entertain her due to scheduling issues alone or that she does not have one, to [facility] if the issue is nonemergent. She was advised to call my office regarding any questions, concerns, or further clarifications regarding her discharge plans and her prescriptions and to take her medications as prescribed. REVIEW OF SYSTEMS: The patient denied any headaches, dizziness, fevers, chills , nausea, vomiting, chest pain, shortness of breath, increased cough. No sputum production, abdominal pain, diarrhea, constipation, pain, and or increased frequency of urination, myalgias, arthralgias, throat pain, or new skin lesions prior to her discharge. PHYSICAL EXAMINATION: Reveals the following vital signs of records with blood pressure of 114/68, 60 beats per minute heart rate, 20 per minute respiratory rate, saturating at 96% on room air, and temperature of 98.6 degrees Fahrenheit. General Appearance: The patient is awake, alert, and oriented x3, not in acute distress per the patient's daughter at the bedside. HEENT: Normocephalic and atraumatic, PERRLA, extraocular movements intact. Negative for icterus, moist oral mucosa, negative throat erythema. Neck is soft and supple with no cervical lymphadenopathy and no JVD. Heart: S1 and S2 within normal limits. Regular rate and rhythm. No murmurs, rubs, or gallops. Chest: Clear to auscultation bilaterally. Good air entry. No wheezes, rales, or rhonchi. Abdomen is soft, nondistended, and nontender. Normoactive bowel sounds x4 extremities. No cyanosis, clubbing, or edema. Psychiatric: No active psychosis, depression, suicidal nor homicidal ideations. Skin is warm to touch. TIME SPENT: The total time spent evaluating the patient, reviewing pertinent data, and appropriate documentation is 70 minutes. [id number]/[facility] #: [id number] STE[place]
== END 2018-07-17 18:45 | disposition home or self-care (01) | DRG 61 ==
LOC: ED 19:23 → ICU 23:50 → MEDTELE 07-16 19:26
PROVIDERS: ADMIT Internal Medicine; ATTEND Student in an Organized Health Care Education/Training Program
DX: I63.511 Cerebral infarction due to unspecified occlusion or stenosis of right middle cerebral artery (principal); G93.6 Cerebral edema; G81.94 Hemiplegia, unspecified affecting left nondominant side; I67.1 Cerebral aneurysm, nonruptured; R29.810 Facial weakness; R29.705 NIHSS score 5; I10 Essential (primary) hypertension; R47.89 Other speech disturbances; Z79.82 Long term (current) use of aspirin
CPT/HCPCS: 36415; 70450; 70460; 70496; 70498; 70551; 71045; 80048; 80053; 80061; 81003; 81015; 82378; 83036; 83605; 83735; 84100; 84443; 84484; 85025; 85027; 85610; 85652; 85730; 86140; 86850; 86900; 86901; 87641; 93005; 93306; 99285; A9270-GY; J1885; J2997; Q9967